=== PATIENT | female | born 1950 | race Caucasian/White ===

== ENCOUNTER 2022-05-27 15:45 | Emergency (ER) | payer MEDICARE, OTHER ==
[~2022-05-27] VITALS: Ht 160 cm; Wt 109.8 kg
--- NOTE | ~2022-05-27 | EKG ---
[facility] [address] [place], [place] [address] Draft EK completed, results pending confirmation PATIENT NAME: [id number] Electrocardiogram DATE OF : 50 PHYSICIAN: PRELIMINARY REPORT #: [id number] REPORT IS CONFIDENTIAL AND NOT TO BE RELEASED WITHOUT AUTHORIZATION
[2022-05-27] MEDS ORDERED: NAPROXEN500 MG PO (15:54)
[2022-05-27] MEDS ORDERED: ZESTRIL20 MG PO (15:55)
[2022-05-27] MEDS ORDERED: PAXLOVID CO-PA1 EAC1 PO (18:35)
== END 2022-05-27 18:58 | disposition home or self-care (01) ==
LOC: ED 15:45
DX: U07.1 COVID-19 (principal); I10 Essential (primary) hypertension; Z79.899 Other long term (current) drug therapy
CPT/HCPCS: 36415; 80053; 83735; 84484; 85025; 85060; 87502; 93005; 93010; A9270; C9803; J7030; U0003